=== PATIENT | female | born 1950 | race Hispanic/Latino ===

== ENCOUNTER → 2022-09-01 | Outpatient (CLI) | payer MEDICARE | END | disposition home or self-care (01) | LOC: SHCH 12:56 | PROVIDERS: ATTEND Internal Medicine Cardiovascular Disease | DX: I10 Essential (primary) hypertension (principal); R07.9 Chest pain, unspecified; R06.00 Dyspnea, unspecified | CPT/HCPCS: 93306 ==

== ENCOUNTER → 2022-10-14 | Outpatient (CLI) | payer OTHER | END | disposition home or self-care (01) | LOC: RAH 10:29 | PROVIDERS: ATTEND Internal Medicine Cardiovascular Disease | DX: Z13.6 Encounter for screening for cardiovascular disorders (principal); R93.1 Abnormal findings on diagnostic imaging of heart and coronary circulation | CPT/HCPCS: 75571 ==

== ENCOUNTER → 2022-10-14 | Outpatient (CLI) | payer MEDICARE, OTHER ==
[~2022-10-14] MED LIST: ALBUTEROL 0.083% 2.5 MG/3 ML INH IH ONE
== END | disposition home or self-care (01) ==
LOC: RESP 10:22
PROVIDERS: ATTEND Internal Medicine Cardiovascular Disease
DX: J40 Bronchitis, not specified as acute or chronic (principal); R06.00 Dyspnea, unspecified; R07.9 Chest pain, unspecified
CPT/HCPCS: 94060; 94727; 94729